=== PATIENT | female | born 1970 | race Caucasian/White ===

== ENCOUNTER 2016-12-03 17:15 | Emergency (ER) | payer OTHER ==
[2016-12-03] MEDS ORDERED: DIPH/PERTUSS(ACELL)/TETANUS VAC/PF 0.5 ML SYR (>=10YO) IM ONE (18:34)
[2016-12-03] MEDS ORDERED: LIDOCAINE 1% INJ-PF (10 MG/ML) 30 ML SDV INJ ONE (18:34)
[2016-12-03] MEDS ORDERED: AMOXICILLIN TR/POT CLAVULANATE 500-125 MG TAB PO ONE (18:36)
--- NOTE | 2016-12-03 18:41 | ER Document Report ---
ED Medical Screen (RME) - General Mode of Arrival: Ambulatory Information source: Patient TRAVEL OUTSIDE OF THE [place] IN LAST 30 DAYS: No <OSCAR BERG - Last Filed: 12/03/16 18:49> <PHILOMENA SOLORZANO - Last Filed: 12/03/16 21:06> - General Chief Complaint: Dizziness Stated Complaint: DIZZINESS,FINGER LACERATION Time Seen by Provider: 12/03/16 18:21 Notes: Patient presents with complaints of dizziness onset 1 week ago. Patient reports she had an anterior cervical effusion surgery performed on 11/02, her gabapentin was increased but she switched back to her old gabapentin dose when the dizziness began. Patient described dizziness as though everything is moving and she looses vision, states it is similar to her vertigo that she had 6 years ago. Patient also complains of a laceration to her left 2nd digit that occurred while she was cutting a box and had a dizzy spell. last tetanus shot was in 2006. (OSCAR BERG) - Related Data Allergies/Adverse Reactions: No Known Allergies Allergy (Verified 12/03/16 18:20) Past Medical History Renal/ Medical History: Denies: Hx Peritoneal Dialysis <OSCAR BERG - Last Filed: 12/03/16 18:49> Physical Exam - HEENT Neck: No: Carotid bruit - Cardiovascular Rhythm: Regular - no gallups, no rubs Murmur: Yes - 1 out of 6 - Extremities Hand: Laceration - laceration radial aspect of left second digit barely crosses DIP joint. <OSCAR BERG - Last Filed: 12/03/16 18:49> Course - Laboratory Result Diagrams: 12/03/16 19:05 12/03/16 19:05 <PHILOMENA SOLORZANO - Last Filed: 12/03/16 21:06> - Vital Signs Vital signs: Temp Pulse Resp BP Pulse Ox 98.7 F 88 13 128/88 H 96 12/03/16 17:18 12/03/16 17:18 12/03/16 17:18 12/03/16 17:18 12/03/16 17:18 - Laboratory Laboratory results interpreted by me: 12/03/16 12/03/16 19:05 19:05 Lymphocytes % 45.1 H Direct Bilirubin 0.5 H Scribe Documentation - Scribe Written by Scribe:: alka Malone, 12/03/16, 1851 acting as scribe for :: Ck <OSCAR BERG - Last Filed: 12/03/16 18:49>
[2016-12-03 19:19] LABS: ABSOLUTE EOSINOPHILS # (AUTO) 0.2 10^3/uL (0.0-0.6); ABSOLUTE LYMPHOCYTES (AUTO) 3.9 10^3/uL (0.5-4.7); ABSOLUTE MONOCYTES (AUTO) 0.7 10^3/uL (0.1-1.4); ABSOLUTE NEUT (AUTO) 3.8 10^3/uL (1.7-8.2); BASOPHILS % (AUTO) 0.4 % (0-2); EOSINOPHILS % (AUTO) 2.2 % (0-6); HEMATOCRIT 40.2 % (36.0-47.0); HEMOGLOBIN 13.5 g/dL (12.0-15.5); HGB HCT DIFFERENCE 0.3; LYMPHOCYTES % (AUTO) 45.1 % (13-45); MEAN CORPUSCULAR HEMOGLOBIN 29.8 pg (27.0-33.4); MEAN CORPUSCULAR HGB CONC 33.6 g/dL (32.0-36.0); MEAN CORPUSCULAR VOLUME 89 fl (80-97); MONOCYTES % (AUTO) 8.2 % (3-13); RED BLOOD COUNT 4.54 10^6/uL (3.72-5.28); RED CELL DISTRIBUTION WIDTH 13.8 % (11.5-14.0); SEGMENTED NEUTROPHILS % (AUTO) 44.1 % (42-78); WHITE BLOOD COUNT 8.7 10^3/uL (4.0-10.5)
[2016-12-03 19:56] LABS: ALANINE AMINOTRANSFERASE 30 U/L (9-52); ALBUMIN 4.3 g/dL (3.5-5.0); ALKALINE PHOSPHATASE 75 U/L (38-126); ANION GAP 11 (5-19); ASPARTATE AMINO TRANSFERASE 22 U/L (14-36); BILIRUBIN,DIRECT 0.5 mg/dL (0.0-0.4); BILIRUBIN,TOTAL 0.7 mg/dL (0.2-1.3); BLOOD UREA NITROGEN 16 mg/dL (7-20); CALCIUM 10.1 mg/dL (8.4-10.2); CARBON DIOXIDE 28 mmol/L (22-30); CHLORIDE 102 mmol/L (98-107); CREATININE RESULT 0.58 mg/dL (0.52-1.25); GLUCOSE 103 mg/dL (75-110); POTASSIUM 4.2 mmol/L (3.6-5.0); SODIUM 140.6 mmol/L (137-145); TOTAL PROTEIN 7.2 g/dL (6.3-8.2)
[2016-12-03] MEDS ORDERED: OXYCODONE-ACETAMINOPHEN 5-325 MG TABLET PO ONE (22:10)
[2016-12-03] MEDS ORDERED: MECLIZINE HCL 25 MG TABLET PO ONE (22:10)
--- NOTE | 2016-12-03 22:18 | ER Document Report ---
ED General - General Chief Complaint: Dizziness Stated Complaint: DIZZINESS,FINGER LACERATION Time Seen by Provider: 12/03/16 18:21 Mode of Arrival: Ambulatory Information source: Patient TRAVEL OUTSIDE OF THE [place] IN LAST 30 DAYS: No - HPI Notes: Patient presents with report that she has history of anterior neck fusion 4 weeks ago that was uneventful and she now is taking both tramadol and oxycodone and was recently cut back on her Neurontin from 900 mg a day to 600 mg a day. The patient reports a long-standing history of vertigo, and states she's had some mild vertigo symptoms recently. The patient states she was cutting a box and had her same classic vertigo symptoms and did not pay attention to the knife she was using and accidentally cut her left index finger. The patient denies any numbness or paresthesia or significant loss of mobility. Tetanus was not up-to-date, the patient received a tetanus shot. Patient denies any chest pain or difficulty breathing or numbness or paresthesia. She reports no headache. She denies any significant neck pain since her surgery. - Related Data Allergies/Adverse Reactions: No Known Allergies Allergy (Verified 12/03/16 18:20) Past Medical History - General Information source: Patient - Social History Smoking Status: Former Smoker Cigarette use (# per day): No Frequency of alcohol use: None Drug Abuse: None Lives with: Friend Family History: Reviewed & Not Pertinent Patient has suicidal ideation: No Patient has homicidal ideation: No Renal/ Medical History: Denies: Hx Peritoneal Dialysis Review of Systems - Review of Systems Notes: REVIEW OF SYSTEMS: CONSTITUTIONAL : Denies fever, chills, or sweats. Denies recent illness. EENT: Denies eye, ear, throat, or mouth pain or symptoms. Denies nasal or sinus congestion or discharge. Denies throat, tongue, or mouth swelling or difficulty swallowing. CARDIOVASCULAR: Denies chest pain. Denies palpitations or racing or irregular heart beat. Denies ankle edema. RESPIRATORY: Denies cough, cold, or chest congestion. Denies shortness of breath, difficulty breathing, or wheezing. GASTROINTESTINAL: Denies abdominal pain or distention. Denies nausea, vomiting , or diarrhea. Denies blood in vomitus, stools, or per rectum. Denies black, tarry stools. Denies constipation. GENITOURINARY: Denies difficulty urinating, painful urination, burning, frequency, blood in urine, or discharge. FEMALE GENITOURINARY: Denies vaginal bleeding, heavy or abnormal periods, irregular periods. Denies vaginal discharge or odor. MUSCULOSKELETAL: Denies back or neck pain or stiffness. Denies joint pain or swelling. SKIN: Denies rash, lesions or sores. Isolated laceration left index finger. Patient is right-handed. HEMATOLOGIC : Denies easy bruising or bleeding. LYMPHATIC: Denies swollen, enlarged glands. NEUROLOGICAL: Denies confusion or altered mental status. Denies passing out or loss of consciousness. Denies headache. Denies weakness or paralysis or loss of use of either side. Denies problems with gait or speech. Denies sensory loss, numbness, or tingling. Denies seizures. PSYCHIATRIC: Denies anxiety or stress. Denies depression, suicidal ideation, or homicidal ideation. ALL OTHER SYSTEMS REVIEWED AND NEGATIVE. Dictation was performed using [employer] voice recognition software Physical Exam - Vital signs Vitals: Temp Pulse Resp BP Pulse Ox 98.7 F 88 13 128/88 H 96 12/03/16 17:18 12/03/16 17:18 12/03/16 17:18 12/03/16 17:18 12/03/16 17:18 - Notes Notes: PHYSICAL EXAMINATION: GENERAL: Well-appearing, well-nourished and in no acute distress. HEAD: Atraumatic, normocephalic. EYES: Pupils equal round and reactive to light, extraocular movements intact, conjunctiva are normal. ENT: Nares patent, oropharynx clear without exudates. Moist mucous membranes. NECK: Normal range of motion, supple without lymphadenopathy. Anterior cervical scar is healing well. No carotid bruits. LUNGS: Breath sounds clear to auscultation bilaterally and equal. No wheezes rales or rhonchi. HEART: Regular rate and rhythm without murmurs ABDOMEN: Soft, nontender, nondistended abdomen. No guarding, no rebound. No masses appreciated. Female : deferred Musculoskeletal: Normal range of motion, no pitting or edema. No cyanosis. NEUROLOGICAL: Cranial nerves grossly intact. Normal speech, normal gait. Normal sensory, motor exams. Full range of motion of the left index finger. Patient has mild lateral fatigable nystagmus with movement of the head and with modified Nylan-barany testing. Normal gait to exam. PSYCH: Normal mood, normal affect. SKIN: Warm, Dry, normal turgor, no rashes noted. Patient has a 1 cm laceration lateral aspect of the palmar portion of the left index finger close to the DIP joint. There is no exposed bone or tendon or nerve. Distally she is neurovascularly intact and there is good tendon function. No tenosynovitis. Course - Re-evaluation Re-evalutation: 12/03/16 22:58 Patient was given a tetanus shot. Orthostatics were normal. No evidence for acute intracranial injury or CVA or arterial occlusion or complications related to patient's cervical spine repair. Mild dizziness fit for patient's chronic history of vertigo, and may be secondary to pain medication use with Percocet and/or tramadol is contributory. No evidence for cardiac ischemia or arrhythmia. Following discussion of risks, triceps, benefits, the patient agreed to surgical repair of 1 cm laceration to the left index finger. The wound area was cleaned with Shur-Clens, then was locally infiltrated with lidocaine 1% without epinephrine 0.5 ML's, then the wound area was cleaned and irrigated and explored with no foreign body or tendon injury or exposed bone, tendon the wound was reapproximated and closed using 3 simple interrupted sutures of 5.0 nonabsorbable suture material with good result. Patient tolerated the procedure well. Patient is none. Blood loss negligible. - Vital Signs Vital signs: Temp Pulse Resp BP Pulse Ox 98.7 F 74 17 120/71 96 12/03/16 17:18 12/03/16 22:46 12/03/16 21:00 12/03/16 22:46 12/03/16 21:00 - Laboratory Result Diagrams: 12/03/16 19:05 12/03/16 19:05 Laboratory results interpreted by me: 12/03/16 12/03/16 19:05 19:05 Lymphocytes % 45.1 H Direct Bilirubin 0.5 H - Diagnostic Test Radiology reviewed: Reports reviewed - EKG Interpretation by [place] EKG shows normal: Sinus rhythm Additional EKG results interpreted by me: 12/03/16 22:17 EKG as interpreted by nj showed normal sinus rhythm rate of 82. There is no gross evidence for acute TN or ischemia identified. No old EKG available for comparison. Discharge - Discharge Clinical Impression: Vertigo Finger laceration Qualifiers: Encounter type: initial encounter Qualified Code(s): S61.219A - Laceration without foreign body of unspecified finger without damage to nail, initial encounter Condition: Stable Disposition: HOME, SELF-CARE Instructions: Antibiotic Ointment Protection ([facility]), Laceration Care ([facility]), Tetanus Immunization Given ([facility]), Vertigo ([facility]) Additional Instructions: Sutures out in 10-12 days. Keep wound clean and dry. Stand up slowly. Prescriptions: Cephalexin Monohydrate [Keflex 500 mg Capsule] 500 mg PO QID #25 capsule Meclizine HCl 25 mg PO TIDP PRN #20 tablet PRN Reason:
[2016-12-03] MEDS ORDERED: LIDOCAINE 1% INJ (10 MG/ML) 10 ML MDV INJ ONE (22:25)
[2016-12-03] MEDS ORDERED: LIDOCAINE 1% INJ-PF (10 MG/ML) 30 ML SDV ONE (22:33)
[2016-12-03] MEDS ORDERED: BACITRACIN ZINC OINTMENT 15 GM TP ONE (22:57)
[2016-12-04 00:01] VITALS: BP 110/77
--- NOTE | 2016-12-04 12:04 | EKG REPORT ---
SEVERITY:- NORMAL ECG - SINUS RHYTHM : Confirmed by: Srinivas Harrell 04-Dec-2016 12:03:14
== END 2016-12-03 23:59 | disposition home or self-care (01) ==
LOC: ER 17:15
PROC: 0HQGXZZ Repair Left Hand Skin, External Approach (ICD-10-PCS; principal; 2016-12-03)
DX: S61.219A Laceration without foreign body of unspecified finger without damage to nail, initial encounter (principal); R42 Dizziness and giddiness; Z79.899 Other long term (current) drug therapy; Z87.891 Personal history of nicotine dependence; X58.XXXA Exposure to other specified factors, initial encounter
CPT/HCPCS: 93005; 99284; 90471; 36415; 85025; 80053; 70450; 70498; 90715; 93010; 12001; J3490

== ENCOUNTER 2016-12-06 19:00 | Emergency (ER) | payer OTHER ==
[2016-12-06] MEDS ORDERED: LIDOCAINE 1% INJ-PF (10 MG/ML) 30 ML SDV INJ ONE (19:59)
--- NOTE | 2016-12-06 20:02 | ER Document Report ---
ED Wound - General Chief Complaint: Laceration Stated Complaint: FINGER LACERATION Time Seen by Provider: 12/06/16 19:50 Notes: Patient is a 46-year-old female that comes emergency department for chief complaint of laceration to her right third digit, states she accidentally cut her finger with a knife while preparing food. Patient is up-to-date on her tetanus within the past 6 months. Patient denies any other injuries. She denies diabetes or blood thinner use. TRAVEL OUTSIDE OF THE [place] IN LAST 30 DAYS: No - Related Data Allergies/Adverse Reactions: No Known Allergies Allergy (Verified 12/03/16 18:20) Past Medical History - General Information source: Patient - Social History Smoking Status: Never Smoker Frequency of alcohol use: None Drug Abuse: None Lives with: Family Family History: Reviewed & Not Pertinent Renal/ Medical History: Denies: Hx Peritoneal Dialysis Musculoskeltal Medical History: Reports Hx Arthritis Past Surgical History: Reports: Hx Orthopedic Surgery - Immunizations Immunizations up to date: Yes Hx Diphtheria, Pertussis, Tetanus Vaccination: Yes Review of Systems - Review of Systems Constitutional: No symptoms reported EENT: No symptoms reported Cardiovascular: No symptoms reported Respiratory: No symptoms reported Gastrointestinal: No symptoms reported Genitourinary: No symptoms reported Female Genitourinary: No symptoms reported Musculoskeletal: See HPI Skin: See HPI Hematologic/Lymphatic: No symptoms reported Neurological/Psychological: No symptoms reported Physical Exam - Vital signs Vitals: Temp Pulse Resp BP Pulse Ox 98.7 F 90 19 124/79 99 12/06/16 19:03 12/06/16 19:03 12/06/16 19:03 12/06/16 19:03 12/06/16 19:03 Interpretation: Normal - General General appearance: Appears well, Alert In distress: None - HEENT Head: Normocephalic, Atraumatic Eyes: Normal Conjunctiva: Normal Extraocular movements intact: Yes Eyelashes: Normal Pupils: PERRL Sinus: Normal Nasal: Normal Mouth/Lips: Normal Mucous membranes: Normal Pharynx: Normal Neck: Normal - Respiratory Respiratory status: No respiratory distress Chest status: Nontender Breath sounds: Normal. No: Decreased air movement, Wheezing Chest palpation: Normal - Cardiovascular Rhythm: Regular. No: Tachycardia Heart sounds: Normal auscultation, S1 appreciated, S2 appreciated Murmur: No - Abdominal Inspection: Normal Distension: No distension Bowel sounds: Normal Tenderness: Nontender. No: Tender, Guarding Organomegaly: No organomegaly - Back Back: Normal, Nontender - Extremities General upper extremity: Other - Approximately 1 cm linear horizontal laceration over the medial aspect and side of the right third digit just past the DIP joint, normal capillary refill and sensation, normal range of motion, partial-thickness, no tendon involvement, no severe bleeding, normal hand and upper extremity exam otherwise General lower extremity: Normal inspection, Nontender, Normal ROM, Normal strength - Neurological Neuro grossly intact: Yes Cognition: Normal Orientation: AAOx4 Murray Coma Scale Eye Opening: Spontaneous Murray Coma Scale Verbal: Oriented Roberto Coma Scale Motor: Obeys Commands Roberto Coma Scale Total: 15 Speech: Normal Motor strength normal: LUE, RUE, LLE, RLE Sensory: Normal - Psychological Associated symptoms: Normal affect, Normal mood - Skin Skin Temperature: Warm Skin Moisture: Dry Skin Color: Normal Course - Re-evaluation Re-evalutation: No neurological deficits or evidence of tendon injury, partial thickness wound repaired without difficulty, discussed wound care, follow-up, return precautions. Patient states understanding and agreement. - Vital Signs Vital signs: Temp Pulse Resp BP Pulse Ox 98.7 F 90 19 124/79 99 12/06/16 19:03 12/06/16 19:03 12/06/16 19:03 12/06/16 19:03 12/06/16 19:03 Procedures - Laceration/Wound Repair right third digit Time completed: 21:05 Wound length (cm): 1.5 Wound's Depth, Shape: Linear Laceration pre-procedure: Sterile PPE donned, Other - Surgical cleanser, saline Anesthetic type: 1% Lidocaine Volume Anesthetic (mLs): 2 Wound explored: Clean, No foreign body removed Irrigated w/ Saline (mLs): 30 Wound Repaired With: Sutures Suture Size/Type: 5:0, Nylon Number of Sutures: 3 Post-procedure wound care: Sterile dressing applied, Splint applied Post-procedure NV exam normal: Yes Complications: No Discharge - Discharge Clinical Impression: Finger laceration Qualifiers: Encounter type: initial encounter Qualified Code(s): S61.219A - Laceration without foreign body of unspecified finger without damage to nail, initial encounter Condition: Stable Disposition: HOME, SELF-CARE Additional Instructions: The sutures need to come out in about 7 days, keep clean, clean gently with soap and water, avoid soaking, wear the protective splint. Return to the emergency department immediately for any signs of infection including redness, swelling, fever, discolored drainage, etc.
[2016-12-06] MEDS: HYDROCODONE/ACETAMINOPHEN 5-325 MG TABLET PO ONE (21:22)
[2016-12-06] MEDS ORDERED: HYDROCODONE/ACETAMINOPHEN 5-325 MG 6 TAB/DSPK PO PRN (21:25)
[2016-12-06 21:35] VITALS: BP 135/84
== END 2016-12-06 21:22 | disposition home or self-care (01) ==
LOC: ER 19:00
PROC: 0HQFXZZ Repair Right Hand Skin, External Approach (ICD-10-PCS; principal; 2016-12-06)
DX: S61.212A Laceration without foreign body of right middle finger without damage to nail, initial encounter (principal); W26.0XXA Contact with knife, initial encounter; Y93.G9 Activity, other involving cooking and grilling
CPT/HCPCS: 12001; 99282; J3490